=== PATIENT | female | born 2000 | race Hispanic/Latino ===

== ENCOUNTER 2023-01-12 13:44 | Emergency (ER) | payer MEDICAID, SELFPAY ==
[2023-01-12 14:31] VITALS: BP 120/68; PULSE 80; RESP 16; TEMP 36.7; O2SAT 100
--- NOTE | 2023-01-12 16:56 | ED.HA ---
HPI - Headache General Chief Complaint: Headache Stated Complaint: headache, 11 weeks Time Seen by Provider: 01/12/23 16:56 History of Present Illness HPI Narrative: Patient is a 22-year-old female, , 11 weeks confirmed intrauterine by first trimester ultrasound here with headache and nausea. Patient states that she has had an intermittent headache for the last 2 months which has worsened over the last 3-4 days. She denies any associated vision changes, numbness or weakness in arms and legs, difficulty walking. She has been taking tylenol which has not been helping her headache. She additionally notes that throughout this entire she has had significant nausea. Her OBGYN has started her on Zofran, last taken 2 days ago. She notes that she continues to vomit, and has had difficulty tolerating most foods. She has lost 7 lbs in the last 2 months during this . She denies any similar symptoms during her first . Had a normal vaginal delivery, uncomplicated, discharged after 2 days. She denies any abdominal pain, no pelvic pain, no vaginal discharge or bleeding. Related Data Allergies Allergy/AdvReac Type Severity Reaction Status Date / Time No Known Allergies Allergy Verified 01/12/23 18:02 Review of Systems Review of Systems: CONSTITUTIONAL: Denies fever, chills, or sweats. EYES: Denies visual changes, redness, or discharge. ENT: Denies rhinorrhea, congestion, sore throat, or otalgia. CARDIOVASCULAR: Denies chest pain, palpitations, or edema. RESPIRATORY: Denies cough or dyspnea. GASTROINTESTINAL: Nausea, vomiting, Denies abdominal pain, constipation or diarrhea. GENITOURINARY: Denies dysuria or hematuria. SKIN: Denies rash or itching. MUSCULOSKELETAL: Denies back pain, joint pain, or myalgia. NEUROLOGIC: Headache, denies numbness, or weakness. PSYCHIATRIC: Denies anxiety or depression. Exam Narrative: GENERAL: Well-appearing, well-nourished, and in no acute distress. HEAD: Normocephalic, atraumatic. EYES: PERRLA and EOMI. ENT: Nares clear. Mucous membranes moist. NECK: Supple. CHEST: Clear to auscultation. No respiratory distress. HEART: Regular rate and rhythm. Normal peripheral pulses. ABDOMEN: Gravid abdomen. Soft, nontender, nondistended. EXTREMITIES: Normal range of motion. No edema. SKIN: Warm, dry, no rash. NEURO: No focal deficits. No visual field deficits. No facial droop. No upper or lower extremity sensory or motor deficits. Alert and oriented x3. PSYCH: Normal mood and affect. Course Course Emergency Course: Chart review performed. Patient here with headache and nausea. No prior visits in our system. Patient seen and evaluated. History obtained from patient and from family at bedside. Normal neurological exam. Believe symptoms likely due to dehydration due to all of her nausea and vomiting this . Will do D5NS, basic labs, UA to look for ketones. BP in normal range, and patient is only first trimester, do not believe patient has preeclampsia at this time. Lab work reviewed. Grossly unremarkable. No rosalva. Some ketones present in urine. 2+ bacteria present, will start on keflex. Patient reevaluated, feeling well. movement noted on bedside ultrasound. Patient will be discharged on B6, doxylamine and zofran. Facilities [employer] offered 4 times during visit including initial evaluation, reevaluations and at time of discharge. Patient declined each time. Return precautions discussed with patient. Patient made aware of what thigns to watch for to make her return to the ED. Advised to follow up with her PCP/obgyn. Patient verbalizes understanding and agrees with plan. Work note provided to family at bedside. Vital Signs Vital signs: Vital Signs Temperature 98.1 F 01/12/23 14:31 Pulse Rate 80 01/12/23 14:31 Respiratory Rate 16 01/12/23 14:31 Blood Pressure 120/68 01/12/23 14:31 Pulse Oximetry 100 01/12/23 14:31 Temperature
[2023-01-12 17:35] LABS: Basophils Percent Auto 0.3 % (0.2-1.2); Eosinophils Absolute Auto 0.1 K/mm3 (0-0.3); Eosinophils Percent Auto 1.1 % (0-4.4); Hematocrit 38.1 % (37.0-47.0); Hemoglobin 13.2 g/dL (12.0-15.0); Immature Granulocyte Absolute 0.05 K/mm3 (0.00-0.031); Immature Granulocyte Percent A 0.4 % (0-0.5); Lymphocytes Absolute Auto 3.21 K/mm3 (0.9-3.2); Lymphocytes Percent Auto 28.7 % (18.3-44.2); Mean Corpuscular HGB Conc 34.6 g/dl (32-36); Mean Corpuscular Hemoglobin 30.3 pg (26-34); Mean Corpuscular Volume 87.6 fl (80-100); Mean Platelet Volume 9.3 fl (7.4-10.4); Monocytes Absolute Auto 0.7 K/mm3 (0.1-0.6); Monocytes Percent Auto 6.3 % (2.6-8.5); Neutrophils Absolute Auto 7.1 K/mm3 (1.3-6.7); Neutrophils Percent Auto 63.2 % (45.5-73.1); Platelet Count Result 291 k/mm3 (150-375); Red Blood Count 4.35 M/mm3 (4.2-5.4); Red Cell Distribution Width 11.9 % (11.5-14.5); White Blood Count 11.2 K/mm3 (4.5-10.0)
[2023-01-12 17:39] VITALS: BP 120/78; PULSE 74; RESP 18; O2SAT 100
[2023-01-12 17:46] LABS: Alanine Aminotransferase 29 U/L (6-35); Alkaline Phosphatase 56 U/L (38-126); Anion Gap 7 mmol/L (8-16); Aspartate Amino Transferase 30 U/L (14-36); Bilirubin,Total 0.4 mg/dL (0.2-1.3); Blood Urea Nitrogen 4 mg/dL (7-17); Calcium 8.7 mg/dL (8.4-10.2); Carbon Dioxide 23 mmol/L (22-30); Chloride 104 mmol/L (98-107); Estimated CRCL calculation 181 ml/min; Estimated Glomerular Filt Rate > 60; Glucose 99 mg/dL (65-110); Potassium 3.5 mmol/L (3.4-5.0); Sodium 134 mmol/L (137-145)
[2023-01-12] MEDS: ONDANSETRON INJ 4 MG/2 ML VIAL IV PUSH (18:02)
[2023-01-12] MEDS: DEXTROSE 5%/0.9% SOD CHL 1,000 ML 500 ML IV CONT (18:02)
[2023-01-12 18:03] LABS: Appearance Urine Clear (Clear); Bacteria Urine 2+ /hpf; Bilirubin Urine 1+ (Negative); Blood Urine Negative (Negative); Calcium Oxalate Crystals Urine Present /hpf; Color Urine Dark Yellow (Yellow); Glucose Urine UA Negative (Negative); Ketones Urine 2+ mg/dL (Negative); Leukocyte Esterase Ur Trace LEU/UL (Negative); Nitrate Urine Negative (Negative); Protein Urine 1+ mg/dL (Negative); RBC Urine 0-2 /hpf (0-2); Specific Grav Ur 1.033 (1.001-1.035); Squamous Epithelial Cell Urine Few /hpf (Few); WBC Urine 0-5 /hpf
[2023-01-12 18:04] LABS: Add Urine Microscopic? YES
[2023-01-12 19:34] VITALS: BP 105/79; PULSE 83; RESP 14; TEMP 36.5; O2SAT 100
--- NOTE | 2023-01-12 19:45 | PC.NURSE ---
Per EDP MD Walls patient only needs 1,000mL of fluid
== END 2023-01-12 21:00 | disposition home or self-care (01) ==
PROVIDERS: Emergency Provider Student in an Organized Health Care Education/Training Program
DX: O26.891 Other specified pregnancy related conditions, first trimester (principal); R51.9 Headache, unspecified; R82.71 Bacteriuria; O21.0 Mild hyperemesis gravidarum; Z3A.11 11 weeks gestation of pregnancy
CPT/HCPCS: 36415; 80053; 81001; 85025; 96374; 99284; J2405; J7042